=== PATIENT | female | born 1975 | race Caucasian/White ===

== ENCOUNTER 2022-06-28 12:44 | Emergency (ER) | payer BC | END 2022-06-28 14:47 | disposition home or self-care (01) | LOC: JP.ED 12:44 | DX: G89.18 Other acute postprocedural pain (principal); H11.31 Conjunctival hemorrhage, right eye; Z88.8 Allergy status to other drugs, medicaments and biological substances; Z86.16 Personal history of COVID-19 | CPT/HCPCS: 99283 ==